=== PATIENT | male | born 1965 | race Caucasian/White ===

== ENCOUNTER 2019-11-01 16:32 | Emergency (ER) | payer OTHER ==
[~2019-11-01] VITALS: Ht 175.3 cm; Wt 90.7 kg
[2019-11-01 17:56] LABS: URINE BILIRUBIN NEGATIVE (Negative); URINE BLOOD NEGATIVE (Negative); URINE CLARITY CLEAR; URINE COLOR YELLOW; URINE GLUCOSE-RANDOM NEGATIVE (Negative); URINE KETONES NEGATIVE (Negative); URINE LEUKOCYTES-REFLEX NEGATIVE (Negative); URINE NITRITE-REFLEX NEGATIVE (Negative); URINE PROTEIN NEGATIVE (Negative); URINE UROBILINOGEN 0.2 E.U./dl (0.2-1.0)
[2019-11-01] MEDS ORDERED: PREDNISONE50 MG PO (18:01)
[2019-11-01] MEDS ORDERED: VENTOLIN HFA 1818 GM INH (18:01)
[2019-11-01] MEDS ORDERED: ZPAK PO (18:01)
[2019-11-01 18:15] VITALS: BP 117/59
== END 2019-11-01 18:15 | disposition home or self-care (01) ==
LOC: M.ERS 16:32
PROVIDERS: Emergency Medicine Emergency Medical Services
DX: J18.9 Pneumonia, unspecified organism (principal); F17.210 Nicotine dependence, cigarettes, uncomplicated